=== PATIENT | male | born 1985 | race Caucasian/White ===

== ENCOUNTER 2018-11-16 13:42 | Emergency (ER) | payer OTHER ==
[~2018-11-16] VITALS: Ht 162.6 cm; Wt 49.9 kg
[~2018-11-16 13:42] MED LIST: BUTALB-APAP-CA1 EACH PO; CELEXA40 MG; CIPROFLOXACIN500 M1 PO; FLAGYL500 MG PO; NORCO 5-325 TA1 EACH PO; ULTRAM 50MG TAB50 MG PO; ZOFRAN ODT4 MG PO; ZOFRAN4 MG PO
[2018-11-16 14:35] LABS: ABSOLUTE BASOPHILS 0.1 thou/uL (0.0-0.2); ABSOLUTE EOSINOPHILS 0.2 thou/uL (0.0-0.7); ABSOLUTE LYMPHOCYTES 2.3 thou/uL (0.8-5.3); ABSOLUTE MONOCYTES 0.7 thou/uL (0.0-1.2); ABSOLUTE NEUTROPHILS 4.7 thou/uL (1.6-8.1); BASOPHILS 0.9 %; EOSINOPHILS 2.2 %; HEMATOCRIT 46.6 % (42.0-52.0); HEMOGLOBIN 15.8 gm/dL (14.0-18.0); LYMPHOCYTES 29.4 %; MCH 29.6 pg (26.0-34.0); MONOCYTES 8.9 %; MPV 8.2 fl. (7.2-11.1); NUCLEATED RBCS 0 /100WBC; PLATELET COUNT* 271 thou/uL (150-400); POLYS 58.6 %; RBC 5.36 mil/uL (4.50-6.00); RDW-CV 13.5 % (10.5-14.5)
[2018-11-16 14:48] LABS: CALCIUM 9.6 mg/dL (8.5-10.1); CREATININE 1.1 mg/dL (0.6-1.3); POTASSIUM 3.7 mmol/L (3.5-5.1)
[2018-11-16 14:52] LABS: ALBUMIN 4.3 g/dL (3.4-5.0); TOTAL BILIRUBIN 0.7 mg/dL (<0.1-1.0); TOTAL PROTEIN 7.3 g/dL (6.4-8.2)
[2018-11-16] MEDS ORDERED: ONDANSETRON HCL4 M2 PO (15:51)
[2018-11-16] MEDS ORDERED: ACETAMINOPHEN-1 EAC1 PO (15:51)
[2018-11-16 16:14] VITALS: BP 98/55
== END 2018-11-16 16:15 | disposition home or self-care (01) ==
LOC: M.ERS 13:42
PROVIDERS: Physician Assistant
DX: R10.13 Epigastric pain (principal); F32.9 Major depressive disorder, single episode, unspecified; Z88.5 Allergy status to narcotic agent; Z88.8 Allergy status to other drugs, medicaments and biological substances

== ENCOUNTER 2019-02-16 10:35 | Emergency (ER) | payer MEDICAID ==
[~2019-02-16] VITALS: Ht 162.6 cm; Wt 46.3 kg
[~2019-02-16 10:35] MED LIST changes: +ACETAMINOPHEN-1 EAC1 PO; +ONDANSETRON HCL4 M2 PO
[2019-02-16] MEDS ORDERED: KEFLEX500 M1 PO (11:31)
[2019-02-16 11:55] VITALS: BP 132/75
== END 2019-02-16 11:55 | disposition home or self-care (01) ==
LOC: M.ERS 10:35
DX: T63.461A Toxic effect of venom of wasps, accidental (unintentional), initial encounter (principal); L53.9 Erythematous condition, unspecified; F32.9 Major depressive disorder, single episode, unspecified; Z88.5 Allergy status to narcotic agent; Y92.89 Other specified places as the place of occurrence of the external cause

== ENCOUNTER 2019-06-15 13:15 | Inpatient (IN) | payer MEDICAID ==
[~2019-06-15] VITALS: Ht 160 cm; Wt 56.7 kg
[~2019-06-15 13:15] MED LIST changes: +KEFLEX500 M1 PO
[2019-06-15 13:16] VITALS: BP 123/70
[2019-06-15] MEDS ORDERED: CYMBALTA60 MG PO (13:20)
[2019-06-15 13:55] LABS: ABSOLUTE LYMPHOCYTES 1.2 thou/uL (0.8-5.3); ABSOLUTE MONOCYTES 0.8 thou/uL (0.0-1.2); ABSOLUTE NEUTROPHILS 10.3 thou/uL (1.6-8.1); BASOPHILS 0.2 %; EOSINOPHILS 0.3 %; HEMATOCRIT 44.7 % (42.0-52.0); HEMOGLOBIN 15.3 gm/dL (14.0-18.0); LYMPHOCYTES 9.6 %; MCH 29.8 pg (26.0-34.0); MCHC 34.2 g/dL (28.0-37.0); MCV 87.3 fL (80.0-100.0); MONOCYTES 6.5 %; MPV 7.7 fl. (7.2-11.1); NUCLEATED RBCS 0 /100WBC; PLATELET COUNT* 260 thou/uL (150-400); POLYS 83.4 %; RBC 5.13 mil/uL (4.50-6.00); RDW-CV 13.3 % (10.5-14.5); WBC 12.4 thou/uL (4.0-11.0)
[2019-06-15 14:07] LABS: INFLUENZA A ANTIGEN Negative (Negative); INFLUENZA B ANTIGEN Negative (Negative)
[2019-06-15 14:14] LABS: CALCIUM 8.5 mg/dL (8.5-10.1); POTASSIUM 3.6 mmol/L (3.5-5.1)
[2019-06-15 14:18] LABS: ALBUMIN 4.4 g/dL (3.4-5.0); TOTAL BILIRUBIN 0.6 mg/dL (<0.1-1.0); TOTAL PROTEIN 7.4 g/dL (6.4-8.2)
--- NOTE | 2019-06-15 15:17 | EKG ---
[place] [address] ELECTROCARDIOGRAM REPORT Name: FAVIOLA CRESPO Room: [place] [address] ADM IN .R.#: [id number] Admission: 06/15/19 Attend Phys: Bhupinder Lopez MD Discharge: Date of : 89 Report #: [id number] THIS REPORT FOR: //name// [facility] ED Test Date: 2019-06-15 Test Time: 13:39:59 Pat Name: FAVIOLA CRESPO Department: Room: [facility] Gender: M Auto Locator: ZINA : 1985 Requested By: Tawanda Gates Order Number: [id number] MD: Favio Saavedra Measurements Intervals [place] Rate: 87 P: 68 VT: 149 QRS: 82 QRSD: 88 T: 36 QT: 362 QTc: 436 Interpretive Statements Sinus rhythm Probable left atrial enlargement No previous ECG available for comparison Electronically Signed On 06-15-2019 15:16:44 BUSINESS SUPPORT by Favio Saavedra [email or web address] <ELECTRONICALLY SIGNED> By: Favio Saavedra MD, [facility] 06/15/19 1516 1339 38 Favio Saavedra MD, FACC /EPI
[2019-06-15 15:21] LABS: URINE BILIRUBIN NEGATIVE (Negative); URINE BLOOD NEGATIVE (Negative); URINE CLARITY CLEAR; URINE COLOR YELLOW; URINE GLUCOSE-RANDOM NEGATIVE (Negative); URINE KETONES 1+ (Negative); URINE LEUKOCYTES-REFLEX NEGATIVE (Negative); URINE NITRITE-REFLEX NEGATIVE (Negative); URINE PROTEIN NEGATIVE (Negative); URINE SPECIFIC GRAVITY 1.015 (1.005-1.030); URINE UROBILINOGEN 0.2 E.U./dl (0.2-1.0)
[2019-06-15 15:31] LABS: AMP/METHAMP Negative (Negative); BARBITURATES Negative (Negative); BENZODIAZEPINES Negative (Negative); COCAINE Negative (Negative); METHADONE Negative (Negative); OPIATES Negative (Negative); PCP Negative (Negative); THC POSITIVE (Negative)
[2019-06-15 15:56] VITALS: BP 110/57
[2019-06-15 16:00] VITALS: BP 118/56
--- NOTE | 2019-06-15 16:22 | NUR ---
PATIENT ARRIVED FRO THE ER THIS EVENING AT 1600. HE IS ALERT AND ORIENTED X 4. PATIENT DENIES NAUSEA BUT C/O CONTINUED DIZZINESS. VITAL SIGNS TAKEN AND WERE WNL. PATIENT INSTRUCTED ON FALL PRCAUTIONS. HE IS RESTING IN BED AT THIS TIME. IV FLUIDS CONTINUED FROM ER.
[2019-06-15 20:00] VITALS: BP 106/61
[2019-06-16 04:00] LABS: ABSOLUTE BASOPHILS 0.1 thou/uL (0.0-0.2); ABSOLUTE EOSINOPHILS 0.2 thou/uL (0.0-0.7); ABSOLUTE LYMPHOCYTES 2.4 thou/uL (0.8-5.3); ABSOLUTE MONOCYTES 0.8 thou/uL (0.0-1.2); ABSOLUTE NEUTROPHILS 2.6 thou/uL (1.6-8.1); BASOPHILS 0.8 %; EOSINOPHILS 2.7 %; HEMATOCRIT 39.6 % (42.0-52.0); HEMOGLOBIN 13.4 gm/dL (14.0-18.0); LYMPHOCYTES 40.5 %; MCH 29.7 pg (26.0-34.0); MCHC 33.7 g/dL (28.0-37.0); MCV 88.1 fL (80.0-100.0); MPV 8.4 fl. (7.2-11.1); NUCLEATED RBCS 0 /100WBC; PLATELET COUNT* 219 thou/uL (150-400); RDW-CV 13.2 % (10.5-14.5)
[2019-06-16 04:10] LABS: CALCIUM 7.2 mg/dL (8.5-10.1); POTASSIUM 3.5 mmol/L (3.5-5.1)
--- NOTE | 2019-06-16 05:47 | NUR ---
ASSUMED CARE OF PATIENT AT APPROX 1930. ALERT AND ORIENTED X4. ASSESSMENT COMPLETED AND CHARTED. VSS ON ROOM AIR. COMPLAINT OF HEADACHE OVERNIGHT ADDRESSED WITH TYLENOL. PATIENT COMPLAINED OF FEELING DIZZY AGAIN, NO ABNORMAL ASSESSMENT NOTED AT THAT TIME. FLUIDS INFUSED ORDERED. NO OTHER COMPLAINTS TONIGHT. FALL PRECAUTIONS IN PLACE. CALL LIGHT WITHIN REACH. HOURLY ROUNDS COMPLETED. WILL CONTINUE WITH PLAN OF CARE.
[2019-06-16 08:00] VITALS: BP 111/59
[2019-06-16 16:00] VITALS: BP 119/61
--- NOTE | 2019-06-16 17:07 | NUR ---
PATINET RESTING IN BED. VSS. PATINET IN NOAPPARNET SIGNS OF DISTRESS. PATIENT DID REPORT TWO BOUTS OF DIZZINESS AND HAND NUMBNESS RESOLVED WITHOUT INTERVENTION. UP WITH STANDBY ASSITANCE. AWAITING RESULTS OF MRI AND EEG FOR CLEARANCE FROM NEURO TO DISCHARGE TO HOME. HOURLY ROUNDING COMPLETED FOR PATIENT SAFETY.
[2019-06-16 20:15] VITALS: BP 112/75
--- NOTE | 2019-06-17 06:17 | NUR ---
PT WAS ABLE TO WALK DOWN THE HALLWAY INDEPENDENTLY. TYNENOL GIVEN FOR HEADACHE. NO N/V. VSS. IVF RUNNING ORDERED. PT SLEEPING THROUGH THE NIGHT. WILL CONTINUE TO MONITOR.
[2019-06-17 09:00] VITALS: BP 120/71
[2019-06-17 11:09] VITALS: BP 120/71
[2019-06-17 11:23] VITALS: BP 120/71
--- NOTE | 2019-06-17 11:24 | NUR ---
CM ASSESSMENT:BRIEF VISIT WITH PT WHO IS DISCHARGING. HE DENIES DME OR HH NEEDS. IS INDEPENDENT AND WORKS. NO FINANCIAL CONCERNS AT THIS TIME
[2019-06-17 11:25] VITALS: BP 120/71
--- NOTE | 2019-06-17 11:55 | NUR ---
I ASSUMED CARE OF THE PATIENT AT 0700. HE IS ALERT AND ORIENTED X4 AND IS UP AD CRISTINA. BED IS IN THE LOW LOCKED POSITION AND CALL LIGHT IS IN REACH. HOURLY ROUNDING IS COMPLETED AND PATIENT NEEDS ARE MET. PAIN IS DENIED. PATIENT IS ASSESSED AND MEDS GIVEN. HE IS DISCHARGED TO HOME WITH A WORK NOTE AND EXPRESSES UNDERSTANDING OF D/C INFORMATION.
--- NOTE | 2019-06-20 12:03 | EEG ---
[address] [address] EEG STUDY REPORT Name: FAVIOLA CRESPO Room: [address] IN M.R.#: [id number] Admission: 06/15/19 Attend Phys: Bhupinder Lopez MD Discharge: 06/17/19 Date of : 89 Report #: [id number] THIS REPORT FOR: //name// CC: Bhupinder BIRD DATE OF SERVICE: 06/16/2019 This patient is being evaluated for syncope. EEG was done by placing the electrodes by standard 10-20 system of electrode placement. Both referential and sequential montages were used for recording. Background activity in this patient's EEG appeared to be about 11 Hz and 50-60 microvolt. The patient went to sleep that is associated with bilateral slowing and vertex sharp waves. Photic stimulation was unremarkable. Throughout the record, no active epileptiform activity was noticed. IMPRESSION: This patient's EEG is within normal limits. Thank you very much for this referral. <ELECTRONICALLY SIGNED> By: Aleksandr Anderson MD 06/20/19 1203 1222 [id number] Anderson MD /nt
--- NOTE | 2019-06-20 12:03 | CON ---
[address] [address] CONSULTATION Name: ZAKFAVIOLA SONJA Room: [address] IN M.R.#: [id number] Admission: 06/15/19 Attend Phys: Bhupinder Lopez MD Discharge: 06/17/19 Date of : 89 Report #: [id number] THIS REPORT FOR: //name// CC: Bhupinder BIRD DATE OF SERVICE: 06/16/2019 HISTORY OF PRESENT ILLNESS: This is a 33-year-old male patient who was seen by me with pretty unusual history. He gives a history that when he woke up, he has headache. Headache was in the center of the head. He has no history of migraine or headache in the past. Then he went to work. He works with somebody, but nobody saw him passing out, but he passed out. He has taken some medications, thinking that he had migraine. He had some nausea along with it, but as mentioned above, he has no prior history of migraine. He does smoke marijuana. He does have a history of anxiety and depression. REVIEW OF SYSTEMS: Indicate that he has a history of anxiety, depression, but no history of migraine in the past. He has a history of pneumothorax. His 14-point review of system was carried out, was otherwise unremarkable. He did pass out during this episode, but then hurt himself. FAMILY HISTORY: Unremarkable. SOCIAL HISTORY: He smokes marijuana. He drinks occasionally, but he does drink 1-2 drinks a day. PHYSICAL EXAMINATION: NEUROLOGIC: Indicate the patient is alert, responsive, able to follow simple and complex command. His speech, concentration, fund of knowledge and memory is at his baseline. Cranial nerve examinations appear unremarkable. He has symmetrical strength, sensation, reflexes in all 4 extremities. I could not look at the fundus. There is no meningeal sign. There is no cerebellar sign. CARDIAC: Unremarkable. LUNGS: No respiratory difficulty or rhonchi was noticed. VITAL SIGNS: Blood pressure is 106/61, respirations 18, pulse is 112, temperature is 98.6. LABORATORY DATA: White count was 12.4 when he came in. His calcium was only 7.2, even his albumin is normal. He did have a CT scan of the head, which was unremarkable. IMPRESSION AND PLAN: Headache with an episode of syncope. I think it will be reasonable to exclude any neurological etiology for the patient's symptom. I discussed that aspect with him. We will get an MRI, echo and EEG. I will also check a thyroid function test. If that shows any abnormality, [place] [address] CONSULTATION Name: FAVIOLA CRESPO Room: [address] IN M.R.#: [id number] Admission: 06/15/19 Attend Phys: Bhupinder Lopez MD Discharge: 06/17/19 Date of : 89 Report #: [id number] accordingly, but if that does not show any definite abnormality, then alternative causes for his symptoms including psychiatric and systemic causes should be considered. <ELECTRONICALLY SIGNED> By: Aleksandr Anderson MD 06/20/19 1203 1037 [id number] Anderson MD /nt
== END 2019-06-17 11:40 | disposition home or self-care (01) | DRG 149 ==
LOC: M.ERS 13:15 → M.ORTHSURG 15:00 → M.TBA-ER 15:00 → M.ORTHSURG 15:55
PROVIDERS: Emergency Medicine; ADMIT Internal Medicine
DX: R42 Dizziness and giddiness (principal); F41.9 Anxiety disorder, unspecified; F32.9 Major depressive disorder, single episode, unspecified; F12.90 Cannabis use, unspecified, uncomplicated; R20.2 Paresthesia of skin; R20.0 Anesthesia of skin; G43.909 Migraine, unspecified, not intractable, without status migrainosus; Z72.89 Other problems related to lifestyle; Z87.730 Personal history of (corrected) cleft lip and palate; Z79.899 Other long term (current) drug therapy; Z88.5 Allergy status to narcotic agent